=== PATIENT | male | born 1935 | race Caucasian/White ===

== ENCOUNTER → 2016-07-26 | Outpatient (CLI) | payer MEDICARE, OTHER ==
[~2016-07-26] MED LIST: B COMPLEX1 TAB.S1 SL; ZYLOPRIM PO
[2016-07-26 12:16] LABS: ALBUMIN SERUM 3.8 g/dL (3.5-5.0); BILIRUBIN,TOTAL 1.6 mg/dL (0.2-2.0); BUN/CREATININE RATIO 15.38; CALCIUM SERUM 8.5 mg/dL (8.4-10.2); CREATININE SERUM 1.3 mg/dL (0.6-1.4); PHOSPHOROUS 3.2 mg/dL (2.5-4.6); URIC ACID 5.8 mg/dL (2.6-7.2)
[2016-07-30 09:41] LABS: CALCIUM (PTHINTACT) 9.2 mg/dL (8.6-10.3)
== END | disposition home or self-care (01) ==
LOC: CLAB 10:58
PROVIDERS: Internal Medicine Nephrology
DX: N18.3 Chronic kidney disease, stage 3 (moderate) (principal); N25.81 Secondary hyperparathyroidism of renal origin
CPT/HCPCS: 36415; 80053; 82310; 83970; 84100; 84550; 93306